=== PATIENT | female | born 1950 | race Hispanic/Latino ===

== ENCOUNTER → 2023-09-09 | Outpatient (CLI) | payer OTHER, MEDICARE ==
[~2023-09-09] MED LIST: AEC81 PO; ASCO500W7 PO; ENAL-91 PO; ERGO500014 PO; EXEN10PE3 SQ; FERS325 PO; FOLI1TAB15 PO; GLIP10TA9 PO; LEVO100T12 PO; MECL-226 PO; METF-446 PO; NATE120T9 PO; PIOG45TA64 PO; PRAV20TA4 PO; SITA100T12 PO
== END | disposition home or self-care (01) ==
LOC: SHCH 13:56
PROVIDERS: ATTEND Internal Medicine Cardiovascular Disease
DX: I87.2 Venous insufficiency (chronic) (peripheral) (principal); I20.0 Unstable angina
CPT/HCPCS: 93970

== ENCOUNTER → 2023-09-11 | Outpatient (CLI) | payer OTHER, MEDICARE ==
[~2023-09-11] MED LIST changes: +REGADENOSON 0.4 MG/5 ML PF SYG IVP ONE
== END | disposition home or self-care (01) ==
LOC: SHCH 07:58
PROVIDERS: ATTEND Internal Medicine Cardiovascular Disease
DX: I20.0 Unstable angina (principal)
CPT/HCPCS: 78452; 96374; 93017; J2785; A9500 ×2

== ENCOUNTER → 2023-09-15 | Outpatient (CLI) | payer OTHER, MEDICARE ==
[~2023-09-15] MED LIST changes: -REGADENOSON 0.4 MG/5 ML PF SYG IVP ONE
== END | disposition home or self-care (01) ==
LOC: SHCH 07:55
PROVIDERS: ATTEND Internal Medicine Cardiovascular Disease
DX: I11.9 Hypertensive heart disease without heart failure (principal); I20.0 Unstable angina; I35.8 Other nonrheumatic aortic valve disorders; E11.9 Type 2 diabetes mellitus without complications; E78.5 Hyperlipidemia, unspecified
CPT/HCPCS: 93306

== ENCOUNTER → 2024-05-24 | Outpatient (CLI) | payer OTHER, MEDICARE | END | disposition home or self-care (01) | LOC: SHCH 14:02 | PROVIDERS: ATTEND Internal Medicine Cardiovascular Disease | DX: I73.9 Peripheral vascular disease, unspecified (principal) | CPT/HCPCS: 93925 ==